=== PATIENT | female | born 1995 | race Caucasian/White ===

== ENCOUNTER 2022-10-30 09:30 | Emergency (ER) | payer OTHER, SELFPAY ==
[2022-10-30 09:57] LABS: Bilirubin Neg (Negative); Blood, Urine Negative (Negative); Clarity Slightly Cloudy (Clear); Glucose, Urine (Dipstick) Normal (Negative); Ketone, Urine Negative (Negative); Leukocyte 500 (Negative); Nitrite Negative (Negative); Protein, Urine (Dipstick) Negative (Neg-Trace); Specific Gravity, Urine 1.005 (1.005-1.030); Urobilinogen Normal mg/dL (Less than 2)
[2022-10-30 10:10] LABS: Bacteria/HPF 2+ HPF (None Seen); RBC/HPF 0-3 HPF (0-3); Squamous Epithelial 0-3 HPF (0-3)
[2022-10-30] MEDS ORDERED: Ondansetron PF 4 MG/2 ML Vial ONE (10:11)
[2022-10-30] MEDS ORDERED: Acetaminophen 500 MG TAB ONE (10:11)
[2022-10-30 10:12] LABS: #Monocytes 0.3 10x3/uL (0.0-1.1); #Neutrophils 6.2 10x3/uL (1.5-8.4); %Basophils 0.1 % (0.0-2.0); %Eosinophils 0.4 % (0.0-6.0); %Lymphocytes 17.8 % (18.0-47.0); %Neutrophils 77.2 % (40.0-75.0); Hemoglobin 12.9 g/dL (12.0-15.5); Mean Corpuscular HGB CONC 34.6 g/dL (32.0-36.0); Mean Corpuscular Hemoglobin 29.6 pg (27.0-33.0); Mean Corpuscular Volume 85.6 fl (81.6-98.3); Mean Platelet Volume 9.8 fl (7.4-10.4); Platelet Count 319 10x3/uL (150-450); RBC Distribution Width 12.5 % (11.5-14.5); Red Blood Cell (RBC) Count 4.36 10x6/uL (3.90-5.03)
[2022-10-30 10:25] LABS: ALT (SGPT) 29 U/L (8-55); AST (SGOT) 25 U/L (5-34); Albumin 3.8 g/dL (3.5-5.0); Alkaline Phosphatase 83 U/L (40-110); Anion Gap 15 mmol/L (10-20); BUN (Urea Nitrogen) 7 mg/dL (7.0-18.7); Bilirubin, Total 0.3 mg/dL (0.2-1.2); Calc. Creatinine Clearance 0 mL/min (70-130); Calcium 9.3 mg/dL (7.8-10.44); Carbon Dioxide 21 mmol/L (22-29); Chloride 104 mmol/L (98-107); Estimated GFR 123; Globulin 3.7 g/dL (2.4-3.5); Glucose 75 mg/dL (70-105); Lipase 11 U/L (8-78); Potassium 4.2 mmol/L (3.5-5.1); Protein, Total 7.5 g/dL (6.0-8.3); Sodium 136 mmol/L (136-145)
== END 2022-10-30 12:15 | disposition home or self-care (01) ==
LOC: CSHERS 09:30
DX: O99.611 Diseases of the digestive system complicating pregnancy, first trimester (principal); K29.70 Gastritis, unspecified, without bleeding; Z3A.12 12 weeks gestation of pregnancy
CPT/HCPCS: 76856; 80053; 81003; 81015; 83690; 84702; 85025; 96361; 96374; J2405

== ENCOUNTER 2023-03-21 02:09 | Observation (INO) | payer OTHER ==
[2023-03-21 02:31] VITALS: BMI 39.1
[2023-03-21] MEDS ORDERED: hydrALAZINE 20 MG/ML VIAL SLOW IVP PRN (02:59)
[2023-03-21] MEDS ORDERED: Ondansetron ODT 4 MG TAB PO SCH (03:00)
[2023-03-21 03:34] LABS: Bilirubin Neg (Negative); Blood, Urine Negative (Negative); Clarity Clear (Clear); Glucose, Urine (Dipstick) Normal (Negative); Ketone, Urine Negative (Negative); Leukocyte 25 (Negative); Nitrite Negative (Negative); Protein, Urine (Dipstick) 15 mg/dl (Neg-Trace); Specific Gravity, Urine 1.015 (1.005-1.030)
[2023-03-21 04:00] LABS: #Monocytes 0.7 10x3/uL (0.0-1.1); %Basophils 0.3 % (0.0-2.0); %Eosinophils 0.3 % (0.0-6.0); %Monocytes 6.3 % (0.0-10.0); %Neutrophils 75.6 % (40.0-75.0); Hemoglobin 11.3 g/dL (12.0-15.5); Mean Corpuscular HGB CONC 33.4 g/dL (32.0-36.0); Mean Corpuscular Hemoglobin 28.9 pg (27.0-33.0); Mean Corpuscular Volume 86.4 fl (81.6-98.3); Mean Platelet Volume 10.4 fl (7.4-10.4); Platelet Count 310 10x3/uL (150-450); RBC Distribution Width 11.9 % (11.5-14.5); Red Blood Cell (RBC) Count 3.91 10x6/uL (3.90-5.03); White Blood Cell (WBC) Count 10.5 10x3/uL (3.5-10.5)
[2023-03-21] MEDS: Morphine 4 MG/ML VIAL IM SCH ×2 (04:07→11:15)
[2023-03-21 04:21] LABS: ALT (SGPT) 26 U/L (8-55); AST (SGOT) 27 U/L (5-34); Albumin 3.3 g/dL (3.5-5.0); Alkaline Phosphatase 176 U/L (40-110); Anion Gap 14 mmol/L (10-20); BUN (Urea Nitrogen) 5 mg/dL (7.0-18.7); Bilirubin, Total 0.6 mg/dL (0.2-1.2); Calc. Creatinine Clearance 191 mL/min (70-130); Calcium 8.9 mg/dL (7.8-10.44); Carbon Dioxide 20 mmol/L (22-29); Chloride 106 mmol/L (98-107); Estimated GFR 123; Globulin 3.4 g/dL (2.4-3.5); Glucose 90 mg/dL (70-105); Lipase 18 U/L (8-78); Potassium 3.8 mmol/L (3.5-5.1); Protein, Total 6.7 g/dL (6.0-8.3); Sodium 136 mmol/L (136-145)
[2023-03-21 05:32] LABS: Bacteria/HPF None Seen HPF (None Seen); CAUTI Indications for Culture Dysuria,urgency,freq; RBC/HPF None Seen HPF (0-3); Squamous Epithelial 0-3 HPF (0-3); WBC/HPF 0-3 HPF (0-3)
[2023-03-21 05:33] LABS: Urine Culture Reflex No No
[2023-03-21] MEDS ORDERED: Morphine 2 MG/ML VIAL IM SCH (11:00)
[2023-03-21] MEDS ORDERED: Morphine 4 MG/ML VIAL ONE (11:14)
[2023-03-21] MEDS ORDERED: Promethazine HCl 25 MG/ML VIAL IM PRN (12:43)
[2023-03-21] MEDS: Acetaminophen 325 MG TAB PO PRN (15:15)
[2023-03-21] MEDS: Ondansetron PF 4 MG/2 ML Vial IVP PRN (19:03)
[2023-03-22] MEDS: Ondansetron PF 4 MG/2 ML Vial IVP PRN ×2 (07:40→14:15)
[2023-03-22] MEDS: Acetaminophen 325 MG TAB PO PRN ×2 (09:38→23:30)
[2023-03-22 11:53] LABS: #Monocytes 0.4 10x3/uL (0.0-1.1); #Neutrophils 6.7 10x3/uL (1.5-8.4); %Basophils 0.1 % (0.0-2.0); %Eosinophils 0.2 % (0.0-6.0); %Lymphocytes 13.2 % (18.0-47.0); %Monocytes 4.4 % (0.0-10.0); %Neutrophils 81.7 % (40.0-75.0); Hemoglobin 11.5 g/dL (12.0-15.5); Mean Corpuscular HGB CONC 33.8 g/dL (32.0-36.0); Mean Corpuscular Hemoglobin 29.5 pg (27.0-33.0); Mean Corpuscular Volume 87.2 fl (81.6-98.3); Mean Platelet Volume 10.5 fl (7.4-10.4); Platelet Count 297 10x3/uL (150-450); White Blood Cell (WBC) Count 8.2 10x3/uL (3.5-10.5)
[2023-03-22 11:59] LABS: ALT (SGPT) 49 U/L (8-55); AST (SGOT) 40 U/L (5-34); Albumin 3.3 g/dL (3.5-5.0); Alkaline Phosphatase 213 U/L (40-110); Bilirubin, Direct 0.5 mg/dL (0.1-0.3); Bilirubin, Total 0.8 mg/dL (0.2-1.2); Protein, Total 6.3 g/dL (6.0-8.3)
[2023-03-22] MEDS ORDERED: Lidocaine 2% PF 5 ML VIAL ONE (16:43)
[2023-03-22] MEDS ORDERED: fentaNYL 50 mcg/mL 1 mL Vial ONE ×3 (16:43→17:42)
[2023-03-22] MEDS ORDERED: PROPOFOL 20 ML ONE (16:43)
[2023-03-22] MEDS ORDERED: Rocuronium Bromide 10 MG/ML (10ML VIAL) ONE (16:43)
[2023-03-22] MEDS ORDERED: Ondansetron PF 4 MG/2 ML Vial ONE (16:44)
[2023-03-22] MEDS ORDERED: CEFAZOLIN 1 GM VIAL ONE (16:46)
[2023-03-22] MEDS ORDERED: Bupivacaine HCl 0.5%/Epinephrine 1:200,000/PF 30 ml Vial ONE (17:00)
[2023-03-22] MEDS ORDERED: PHENYLEPHRINE-NS 100 MCG/ML 10 ML SYRINGE ONE (17:05)
[2023-03-22] MEDS ORDERED: Morphine 2 MG/ML VIAL SLOW IVP SCH (20:30)
[2023-03-23] MEDS ORDERED: Morphine 4 MG/ML VIAL SLOW IVP PRN (01:45)
[2023-03-23] MEDS: HYDROcodone/Acetaminophen 7.5/325 mg Tablet PO PRN ×2 (09:54→15:10)
[2023-03-23 11:57] VITALS: BP 99/55; TEMP 98.2
== END 2023-03-23 15:13 | disposition home or self-care (01) ==
LOC: CSHLD/OP 02:09 → CSHANTE 14:53
PROVIDERS: ADMIT Family Medicine; ATTEND Family Medicine
PROC: 0FT44ZZ Resection of Gallbladder, Percutaneous Endoscopic Approach (ICD-10-PCS; principal; 2023-03-22)
DX: O99.613 Diseases of the digestive system complicating pregnancy, third trimester (principal); K80.12 Calculus of gallbladder with acute and chronic cholecystitis without obstruction; K31.A0 Gastric intestinal metaplasia, unspecified; Z79.899 Other long term (current) drug therapy; Z3A.32 32 weeks gestation of pregnancy
CPT/HCPCS: 36415; 76705; 80053; 80076; 81001; 83690; 85025; 88304; 99285; C1889; J0690; J2001; J2270; J2272; J2405; J2704; J3010

== ENCOUNTER 2023-05-01 20:40 | Day surgery (SDC) | payer OTHER ==
[2023-05-01] MEDS ORDERED: hydrALAZINE 20 MG/ML VIAL SLOW IVP PRN (21:26)
[2023-05-01 21:43] VITALS: BMI 38.5
== END 2023-05-01 23:58 | disposition home or self-care (01) ==
LOC: CSHLD/OP 20:40
PROVIDERS: ATTEND Family Medicine
DX: O47.1 False labor at or after 37 completed weeks of gestation (principal); O23.593 Infection of other part of genital tract in pregnancy, third trimester; N89.8 Other specified noninflammatory disorders of vagina; Z90.49 Acquired absence of other specified parts of digestive tract; Z3A.38 38 weeks gestation of pregnancy
CPT/HCPCS: 87480; 87510; 87660

== ENCOUNTER 2023-05-04 20:07 | Inpatient (IN) | payer OTHER ==
[2023-05-04 20:32] VITALS: BMI 38.7
[2023-05-04] MEDS ORDERED: hydrALAZINE 20 MG/ML VIAL SLOW IVP PRN (21:55)
[2023-05-04] MEDS ORDERED: Methylergonovine 0.2 MG/ML VIAL IM PRN (21:55)
[2023-05-04] MEDS ORDERED: Carboprost 250 MCG/ML AMP IM PRN (21:55)
[2023-05-04] MEDS ORDERED: Acetaminophen 500 MG TAB PO PRN (21:55)
[2023-05-04] MEDS ORDERED: Ondansetron PF 4 MG/2 ML Vial IVP PRN ×2 (21:55→22:44)
[2023-05-04] MEDS ORDERED: Misoprostol 200 MCG TAB PR PRN (21:55)
[2023-05-04] MEDS ORDERED: Ibuprofen 800 MG TAB PO PRN (21:55)
[2023-05-04] MEDS ORDERED: Promethazine HCl 25 MG/ML VIAL IM PRN ×2 (21:55→22:44)
[2023-05-04] MEDS ORDERED: Lidocaine 1% (PF) 30 ML VIAL SC PRN (21:55)
[2023-05-04] MEDS ORDERED: Misoprostol 100 MCG TAB VAG SCH (22:00)
[2023-05-04] MEDS ORDERED: NS w/ Oxytocin 30 units 500 ML IV SCH ×3 (22:00)
[2023-05-04] MEDS ORDERED: fentaNYL/Ropivacaine Epidural 100 ML ONE (22:02)
[2023-05-04 22:16] LABS: Hematocrit 34.2 % (34.9-44.5); Hemoglobin 11.5 g/dL (12.0-15.5); Mean Corpuscular HGB CONC 33.6 g/dL (32.0-36.0); Mean Corpuscular Hemoglobin 29.3 pg (27.0-33.0); Mean Corpuscular Volume 87.2 fl (81.6-98.3); Mean Platelet Volume 11.5 fl (7.4-10.4); Platelet Count 299 10x3/uL (150-450); RBC Distribution Width 13.6 % (11.5-14.5); Red Blood Cell (RBC) Count 3.92 10x6/uL (3.90-5.03); White Blood Cell (WBC) Count 10.4 10x3/uL (3.5-10.5)
[2023-05-04 22:33] LABS: Syphilis Antibody Nonreactive (Nonreactive); Syphilis Antibody Index 0.03 S/CO (<1.00 Non-Reactive)
[2023-05-04 22:34] LABS: HBSAg Index 0.16 S/CO (0-0.99); Hep B Surf Ag - L&D Non-Reactive S/CO (NonReactive)
[2023-05-04] MEDS ORDERED: ePHEDrine Sulfate 50 MG/10 ML VIAL SLOW IVP PRN (22:44)
[2023-05-04] MEDS ORDERED: Naloxone HCl 0.4 mg/ml Vial IVP PRN ×2 (22:44)
[2023-05-04] MEDS ORDERED: Acetaminophen 325 MG TAB PO PRN (22:44)
[2023-05-04] MEDS ORDERED: diphenhydrAMINE 50 MG/ML VIAL IVP PRN (22:44)
[2023-05-04] MEDS ORDERED: Moisturizing Cream (Eucerin) 113 GM JAR TOP PRN (22:44)
[2023-05-04] MEDS ORDERED: Lactated Ringer's 500 ML IV PRN (22:44)
[2023-05-04] MEDS ORDERED: fentaNYL 2 mcg/Ropivacaine 0.2% Epidural 100 ML CADD EPIDURAL SCH (22:45)
[2023-05-04] MEDS ORDERED: Communication Order-Pharmacy FS SCH (22:45)
[2023-05-05] MEDS ORDERED: HYDROcodone/Acetaminophen 5/325 mg Tablet PO PRN ×2 (06:33)
[2023-05-05] MEDS ORDERED: hydrALAZINE 20 MG/ML VIAL SLOW IVP PRN (06:33)
[2023-05-05] MEDS ORDERED: Misoprostol 200 MCG TAB VAG PRN (06:33)
[2023-05-05] MEDS ORDERED: Benzocaine-Menthol 82.5 ML CAN TOP PRN (06:33)
[2023-05-05] MEDS ORDERED: Lanolin Ointment 7 GM TUBE TOP PRN (06:33)
[2023-05-05] MEDS ORDERED: Milk Of Magnesia 30 ML UDCUP PO PRN (06:33)
[2023-05-05] MEDS ORDERED: Boostrix 0.5 ML (Tdap) VIAL (>/=7 yrs of age) IM ONE (06:33)
[2023-05-05] MEDS ORDERED: NS w/ Oxytocin 30 units 500 ML IV SCH (06:33)
[2023-05-05] MEDS ORDERED: Bisacodyl 10 MG SUPP PR PRN (06:33)
[2023-05-05] MEDS: Docusate 100 MG CAP PO SCH ×2 (08:40→21:38)
[2023-05-05] MEDS: Ibuprofen 800 MG TAB PO SCH ×2 (08:40→17:21)
[2023-05-05] MEDS: Prenatal Vitamin 1 TAB PO SCH (08:40)
[2023-05-05] MEDS ORDERED: Acetaminophen 500 MG TAB PO SCH (15:15)
[2023-05-05] MEDS: Ferrous Sulfate 325 MG TAB PO SCH (21:05)
[2023-05-05] MEDS: Acetaminophen 500 MG TAB PO PRN (21:39)
[2023-05-06] MEDS: Ibuprofen 800 MG TAB PO SCH ×2 (00:32→09:18)
[2023-05-06] MEDS: Acetaminophen 500 MG TAB PO PRN (04:12)
[2023-05-06] MEDS: Ferrous Sulfate 325 MG TAB PO SCH (07:13)
[2023-05-06 07:47] VITALS: BP 125/84; TEMP 98.1
[2023-05-06] MEDS: Prenatal Vitamin 1 TAB PO SCH (09:18)
[2023-05-06] MEDS: Docusate 100 MG CAP PO SCH (09:18)
== END 2023-05-06 13:10 | disposition home or self-care (01) | DRG 807 ==
LOC: CSHLD/OP 20:07 → CSHLD 21:34 → CSHPP 05-05 05:40
PROVIDERS: ADMIT Student in an Organized Health Care Education/Training Program; ATTEND Student in an Organized Health Care Education/Training Program
PROC: 10E0XZZ Delivery of Products of Conception, External Approach (ICD-10-PCS; principal; 2023-05-05)
PROC: 0HQ9XZZ Repair Perineum Skin, External Approach (ICD-10-PCS; 2023-05-05)
DX: O77.0 Labor and delivery complicated by meconium in amniotic fluid (principal); Z37.0 Single live birth; O70.0 First degree perineal laceration during delivery; Z3A.38 38 weeks gestation of pregnancy
CPT/HCPCS: 36415; 51702; 85027; 86780; 86850; 86900; 86901; 87340; 99285; J2590

== ENCOUNTER 2025-08-21 03:06 | Emergency (ER) | payer OTHER | END 2025-08-21 03:55 | disposition home or self-care (01) | LOC: CSHERS 03:06 | DX: J02.9 Acute pharyngitis, unspecified (principal); R05.9 Cough, unspecified; R50.9 Fever, unspecified | CPT/HCPCS: 87081; 87428; 87430; 99283 ==